=== PATIENT | female | born 1980 | race Caucasian/White ===

== ENCOUNTER → 2016-10-08 | Outpatient (CLI) | payer OTHER ==
[~2016-10-08] MED LIST: ASPIRIN 81M81 MG/TA2 PO; CARAFATE 1GM1 G PO; CLARITIN-D 10 M1 T24 PO; LORTAB 5/500 501 TAB PO; METRONIDAZOLE500 MG PO; MOTRIN 600600 MG/TAB PO; NO HOME MEDICATIONS; NORCO 325 MG-7.1 TAB PO; OMNICEF 300MG300 MG PO; PRENATAL1 TA1 PO; PROTONIX 40MG T40 MG PO; RHINOCORT0.032 MG/1 NS
== END ==
LOC: COL.RAD 12:43
DX: N20.0 Calculus of kidney (principal); M47.817 Spondylosis without myelopathy or radiculopathy, lumbosacral region; M43.17 Spondylolisthesis, lumbosacral region
CPT/HCPCS: Q9967

== ENCOUNTER 2016-10-12 09:32 | Day surgery (SDC) | payer OTHER ==
[~2016-10-12] VITALS: Ht 170.2 cm; Wt 72.7 kg
[~2016-10-12 09:32] MED LIST changes: -CARAFATE 1GM1 G PO; -CLARITIN-D 10 M1 T24 PO; -OMNICEF 300MG300 MG PO; -PROTONIX 40MG T40 MG PO; -RHINOCORT0.032 MG/1 NS
[2016-10-12 09:54] VITALS: BP 125/85; PULSE 83; TEMP 97.8
[2016-10-12] MEDS ORDERED: PROTONIX 40MG T40 MG PO (10:03)
[2016-10-12] MEDS ORDERED: OMNICEF 300MG300 MG PO (10:04)
[2016-10-12] MEDS ORDERED: CARAFATE 1GM1 G PO (10:04)
[2016-10-12] MEDS ORDERED: CLARITIN-D 10 M1 T24 PO (10:05)
[2016-10-12] MEDS ORDERED: RHINOCORT0.032 MG/1 NS (10:06)
[2016-10-12 11:30] VITALS: BP 114/79; PULSE 98; TEMP 99.2
[2016-10-12 11:45] VITALS: BP 108/72; PULSE 77
[2016-10-12 12:00] VITALS: BP 103/70; PULSE 93
[2016-10-12 12:15] VITALS: BP 103/70; PULSE 93
== END 2016-10-12 12:50 | disposition home or self-care (01) ==
LOC: SDCO 09:32
DX: K29.50 Unspecified chronic gastritis without bleeding (principal); K63.89 Other specified diseases of intestine; K58.9 Irritable bowel syndrome, unspecified; Z86.010 Personal history of colon polyps
CPT/HCPCS: OP; J2250; J2405; J7030

== ENCOUNTER → 2017-06-20 | Outpatient (CLI) | payer OTHER ==
[~2017-06-20] MED LIST changes: +CARAFATE 1GM1 G PO; +CLARITIN-D 10 M1 T24 PO; +OMNICEF 300MG300 MG PO; +PROTONIX 40MG T40 MG PO; +RHINOCORT0.032 MG/1 NS
== END ==
LOC: COL.RAD 07:10
DX: R10.11 Right upper quadrant pain (principal); Z90.49 Acquired absence of other specified parts of digestive tract

== ENCOUNTER → 2018-01-24 | Outpatient (CLI) | payer OTHER | LOC: COL.RAD 05-30 07:30 | DX: R10.11 Right upper quadrant pain (principal); R10.32 Left lower quadrant pain ==

== ENCOUNTER 2018-04-02 22:11 | Emergency (ER) | payer OTHER ==
[~2018-04-02] VITALS: Ht 170.2 cm; Wt 70.5 kg
[2018-04-02 22:19] VITALS: TEMP 99.6
[2018-04-02] MEDS ORDERED: VANTIN 200200 MG/TAB (22:29)
[2018-04-02] MEDS ORDERED: PROTONIX40 MG/Pack PO (22:29)
[2018-04-02 23:00] LABS: COLLECTION METHOD CLEAN CATCH
[2018-04-02 23:03] LABS: BASO % 0.2 % (0.0-2.0); EOS # 0.2 (0.0-0.7); EOS % 2.5 % (0-4.0); GRAN # 7.6 (1.4-6.5); GRAN % 84.1 % (42.2-75.2); HEMATOCRIT 43.3 % (37.0-47.0); HEMOGLOBIN 14.7 g/dl (12.5-16.0); LYMPH # 0.6 (1.2-3.4); LYMPH % 7.1 % (20.0-51.0); MEAN CELL VOLUME 84 fl (80.0-100.0); MEAN CORPUSCULAR HEMOGLOBIN 29 pg (27.0-31.0); MEAN CORPUSCULAR HGB CONC 34 g/dl (33.0-37.0); MONO # 0.5 (0.1-0.6); MONO % 5.8 % (1.7-9.3); PLATELET COUNT 229 K/mm3 (130-400); RED BLOOD COUNT 5.14 M/mm3 (4.10-5.30); REDCELL DISTRIBUTION WIDTH-CV 12.2 % (11.5-14.5)
[2018-04-02 23:06] LABS: MUCOUS Present /lpf; PH 5 (5-8); SQUAMOUS EPITHELIAL 0-2 /hpf; URINE APPEARANCE Hazy; URINE BACTERIA None Seen /hpf; URINE BILIRUBIN Negative (NEGATIVE); URINE BLOOD Negative (NEGATIVE); URINE COLOR Yellow; URINE GLUCOSE Negative (NEGATIVE); URINE KETONE Trace (NEGATIVE); URINE LEUKOCYTE ESTERASE Negative (NEGATIVE); URINE NITRATE Negative (NEGATIVE); URINE PROTEIN(semi-quant) Negative (NEGATIVE); URINE RBC 0-2 /hpf; URINE UROBILINOGEN Negative (NEGATIVE)
[2018-04-02 23:11] LABS: ALANINE AMINOTRANSFERASE 34 U/L (9-52); ALBUMIN 4.3 gm/dL (3.5-5.0); ALKALINE PHOSPHATASE 69 U/L (50-136); ANION GAP 9 mmol/L (7-16); AST,SGOT 27 U/L (15-37); BILIRUBIN,TOTAL 0.3 mg/dL (0.0-1.0); BLOOD UREA NITROGEN 12 mg/dL (7-17); CARBON DIOXIDE 27 mmol/L (22-30); CHLORIDE 104 mmol/L (98-107); CREATININE, serum 0.68 mg/dL (0.52-1.25); GLUCOSE 102 mg/dL (74-106); LIPASE 99 U/L (23-300); POTASSIUM 3.7 mmol/L (3.4-5.0); SODIUM 140 mmol/L (137-145); TOTAL PROTEIN 7.6 gm/dL (6.4-8.2)
[2018-04-02 23:12] LABS: C-REACTIVE PROTEIN < 0.5 mg/dL (0.0-0.9)
[2018-04-02 23:29] VITALS: BP 122/81; PULSE 96
== END 2018-04-02 23:31 | disposition home or self-care (01) ==
LOC: COL.ER 22:11
PROVIDERS: Family Medicine
DX: K83.8 Other specified diseases of biliary tract (principal); Z90.49 Acquired absence of other specified parts of digestive tract
CPT/HCPCS: J1170; J2405; J7030

== ENCOUNTER → 2018-04-11 | Outpatient (CLI) | payer OTHER ==
[~2018-04-11] MED LIST changes: +PROTONIX40 MG/Pack PO; +VANTIN 200200 MG/TAB
== END ==
LOC: ZCOL.LAB 15:26
DX: J32.4 Chronic pansinusitis (principal)

== ENCOUNTER → 2019-03-20 | Outpatient (CLI) | payer OTHER | LOC: COL.RAD 14:11 | DX: M50.322 Other cervical disc degeneration at C5-C6 level (principal) | CPT/HCPCS: A9585 ==

== ENCOUNTER → 2019-04-10 | Outpatient (CLI) | payer OTHER | LOC: COL.RAD 09:42 | DX: M43.17 Spondylolisthesis, lumbosacral region (principal); M47.817 Spondylosis without myelopathy or radiculopathy, lumbosacral region ==

== ENCOUNTER → 2019-04-27 | Outpatient (CLI) | payer OTHER | LOC: COL.RAD 08:50 | DX: M51.34 Other intervertebral disc degeneration, thoracic region (principal) | CPT/HCPCS: A9585 ==

== ENCOUNTER → 2023-06-23 | Outpatient (CLI) | payer OTHER | LOC: MC.RAD 12:39 | DX: N63.22 Unspecified lump in the left breast, upper inner quadrant (principal) ==

== ENCOUNTER → 2023-06-28 | Outpatient (CLI) | payer OTHER | LOC: MC.RAD 07:50 | DX: N63.20 Unspecified lump in the left breast, unspecified quadrant (principal) ==